=== PATIENT | female | born 1995 | race Caucasian/White ===

== ENCOUNTER 2017-03-11 01:34 | Emergency (ER) | payer OTHER ==
[~2017-03-11] VITALS: Ht 162.6 cm; Wt 71.5 kg
[2017-03-11 01:44] VITALS: TEMP 36.6; Ht 162.6 cm; Wt 71.5 kg
[2017-03-11] MEDS ORDERED: DOCUSATE SODIUM 100 MG/10 ML UDC PO STA (01:56)
[2017-03-11] MEDS ORDERED: AMOXICILLIN 250 MG CAP PO STA (02:28)
[2017-03-11] MEDS ORDERED: AMOX500C3 PO (02:41)
[2017-03-11] MEDS ORDERED: CARB1SOL8 OT (02:41)
--- NOTE | 2017-03-11 02:42 | EMERGENCY ROOM VISIT NOTE ---
History First contact with patient: 01:49 Chief Complaint: HEARING LOSS Stated Complaint: CAN'T HEAR OUT OF RT EAR,TINGLIY/DIZZY FEELING,SHA History of Present Illness The patient is a 22 year old female who presents to the Emergency Room with complaints of difficulty hearing out of her right ear for the past few days. The patient states that her symptoms have been constant over the past 2-3 days. She reports that she is concerned because she researched this online and feels she could have a brain hemorrhage because she has had a slight headache earlier tonight. The patient states that she has felt "tingly" all over her body. She denies recent head injury. She reports a mild discomfort in her right ear but denies any significant pain. She has a history of ear infections as a child but not as an adult. She denies any numbness or weakness, blurred vision, slurred speech, neck pain/stiffness or confusion. She denies fevers/ chills. Review of Systems A complete 10 point review of systems was reviewed with the patient with pertinent positives and negatives as per history of present illness. All else were negative. Social History Smoking Status: Never Smoker Alcohol Use: occasionally Drug Use: none Marital Status: single Housing Status: lives with roommate Occupation Status: [employer] student Current/Historical Medications Scheduled Amoxicillin (Amoxil), 500 MG PO TID Control Pills ( Control Pills), 1 TAB PO DAILY Carbamide Peroxide (Otic) (Debrox), 5 DROPS OT HS Physical Exam Vital Signs Date Time Temp Pulse Resp B/P (MAP) Pulse Ox O2 Delivery O2 Flow Rate FiO2 03/11/17 02:45 77 16 100/61 99 03/11/17 01:44 36.6 81 18 146/86 96 Room Air Physical Exam VITALS: Vitals are noted on the nurse's note and reviewed by myself. Vital signs stable. GENERAL: This is a 22-year-old female, in no acute distress, nondiaphoretic, well-developed well-nourished. SKIN: The skin was without rashes. EARS: The left tympanic membrane is partially obscured with cerumen but appears normal. The right tympanic membrane is completely obscured with cerumen. After the cerumen was removed, the tympanic membrane was found to be slightly bulging with an effusion. EYES: Pupils equal round and reactive to light and accommodation. Extraocular movements intact. MOUTH: Mucous membranes moist. Tonsils are not enlarged. Pharynx without erythema or exudate. NECK: Supple without nuchal rigidity. No lymphadenopathy. HEART: Regular rate and rhythm without murmurs gallops or rubs. LUNGS: Clear to auscultation bilaterally without wheezes, rales or rhonchi. MUSCULOSKELETAL: Strength 5/5 throughout. NEURO: Patient was alert and oriented to person place and time. Normal sensation to light and sharp touch. No focal neurological deficits. Medical Decision & Procedures Medications Administered Medications (Trade) Dose Ordered Sig/Rene Route Start Time Stop Time Status Last Admin Dose Admin Docusate Sodium (coLACE SYRUP) 100 mg NOW STAT PO 03/11/17 01:56 03/11/17 01:57 DC 03/11/17 01:56 100 MG Amoxicillin (Amoxil Cap) 500 mg NOW STAT PO 03/11/17 02:28 03/11/17 02:33 DC 03/11/17 02:28 500 MG Medical Decision The patient was evaluated as above. She has a cerumen impaction of the right ear which is likely causing her hearing loss. Colace was placed in the ear and the ear was irrigated with saline successfully. The patient was reevaluated and stated she felt much better. I feel that her symptoms were likely secondary to anxiety regarding her symptoms. She had only a mild headache and I am not suspicious of a subarachnoid hemorrhage. The eardrum did show some bulging and effusion and she will be placed on amoxicillin. She was given a prescription for Debrox drops and referred back to her PCP. She verbalized understanding of my assessment and treatment plan and was discharged home in good condition. Medication Reconcilliation Current Medication List: was personally reviewed by me Blood Pressure Screening Patient's blood pressure: Normal blood pressure Impression Primary Impression: Otitis media Additional Impression: Cerumen impaction Departure Information Dispostion Home / Self-Care Condition GOOD Prescriptions Carbamide Peroxide (Otic) (DEBROX) 6.5 % Jessica 5 DROPS OT HS, #15 ML Prov: Sandhya Dave PA-C 03/11/17 Amoxicillin (AMOXIL) 500 Mg Cap 500 MG PO TID for 7 Days, #21 CAP Prov: Sandhya Dave PA-C 03/11/17 Referrals [facility] (PCP) Patient Instructions My [facility] Additional Instructions You were prescribed amoxicillin to be taken as prescribed. This is an antibiotic. All antibiotics have the potential to cause diarrhea. Stop this medication and contact a medical provider if you were to develop any significant adverse side effects including: wheezing, shortness of breath, passing out, vomiting, or a diffuse rash. Always take antibiotics as directed and COMPLETE the ENTIRE course regardless of the improvement of your symptoms. For pain control, you can use the following [id number] medicines (if >12 yo): - Regular strength (325mg/tab) Tylenol (acetaminophen) 2 tabs every 4-6 hours as needed. Do not exceed 12 tablets in a 24 hour period. Avoid taking more than 4 grams (4000 mg) of Tylenol per day. This includes any other sources of acetaminophen you may take on a regular basis. - Regular strength (200 mg/tab) Advil (ibuprofen) 1-2 tabs every 4-6 hours as needed. Do not exceed a dose of 3200 mg per day. Use the Debrox drops in the ear as needed for wax buildup. Follow-up with [facility] for further evaluation. Return here for any worsening or new/concerning symptoms. Problem Qualifiers Primary Impression: Otitis media Additional Impression: Cerumen impaction Laterality: right Qualified Codes: H61.21 - Impacted cerumen, right ear
[2017-03-11 02:45] VITALS: BP 100/61; PULSE 77; O2SAT 99
[2017-04-24] MEDS ORDERED: BCPILLS PO (02:00)
== END 2017-03-11 02:46 | disposition home or self-care (01) ==
LOC: C.EDB 01:35
DX: H66.91 Otitis media, unspecified, right ear (principal); H61.21 Impacted cerumen, right ear; Z79.3 Long term (current) use of hormonal contraceptives

== ENCOUNTER 2017-03-11 21:56 | Emergency (ER) | payer OTHER ==
[~2017-03-11] VITALS: Ht 162.6 cm; Wt 71.1 kg
[~2017-03-11 21:56] MED LIST: AMOX500C3 PO; CARB1SOL8 OT
[2017-03-11 22:00] VITALS: TEMP 36.7; Ht 162.6 cm; Wt 71.1 kg
[2017-03-11 23:50] LABS: BASO % 0.3 %; BASO ABS # 0.02 K/uL (0-0.2); COMPLETE YES; EOS % 1.7 %; HEMATOCRIT 37.4 % (37-47); IG% 0.3 %; LYMPH % 22.9 %; LYMPH ABS # 1.44 K/uL (1.2-3.4); MEAN CELL VOLUME 90.6 fL (80-100); MEAN CORPUSCULAR HEMOGLOBIN 30.8 pg (25-34); MONO % 11.4 %; NEUT % 63.4 %; PLATELET COUNT 242 K/uL (130-400); RED BLOOD COUNT 4.13 M/uL (4.2-5.4)
[2017-03-12 00:15] LABS: BUN/CREATININE RATIO 16.4 (10-20); CALCIUM 8.6 mg/dl (8.5-10.1); CREATININE 0.63 mg/dl (0.60-1.20); MAGNESIUM 2.3 mg/dl (1.8-2.4)
[2017-03-12 00:26] LABS: THYROID STIMULATING HORMONE 1.01 uIu/ml (0.300-4.500)
[2017-03-12] MEDS ORDERED: LORAZEPAM 0.5 MG TAB SL STA (00:51)
--- NOTE | 2017-03-12 01:39 | EMERGENCY ROOM VISIT NOTE ---
History First contact with patient: 22:58 Chief Complaint: DIZZY Stated Complaint: TINGLING FEELING IN HEAD,EAR/SIGHT SENSITIVE, DIZZ Nursing Triage Summary: Patient states "I was here yesterday and they flushed my right ear. Today, my head feels tingly and I am dizzy. I have headache, side of the head and back of the head pain. I don't know if they are my sinuses hurting." History of Present Illness The patient is a 22 year old female who presents to the Emergency Room with complaints of a tingling feeling in her head. The patient states that she has had a tingling sensation in the front of her face. She was seen here yesterday by myself and had her right ear canal flushed. She states she has had intermittent pains in the side of her head. She does state that she was drinking over the weekend and is unsure if she hit her head. She denies any other numbness, weakness or tingling. She denies any confusion, blurred vision or slurred speech. She states that her ear is feeling better. She does admit to feeling very anxious. She denies chest pain or shortness of breath. Review of Systems A complete 10 point review of systems was reviewed with the patient with pertinent positives and negatives as per history of present illness. All else were negative. Social History Smoking Status: Never Smoker Alcohol Use: occasionally Drug Use: none Marital Status: single Housing Status: lives with roommate Occupation Status: [employer] student Current/Historical Medications Scheduled Amoxicillin (Amoxil), 500 MG PO TID Control Pills ( Control Pills), 1 TAB PO DAILY Carbamide Peroxide (Otic) (Debrox), 5 DROPS OT HS Allergies Coded Allergies: No Known Allergies (Unverified , 03/11/17) Physical Exam Vital Signs Date Time Temp Pulse Resp B/P (MAP) Pulse Ox O2 Delivery O2 Flow Rate FiO2 03/12/17 01:46 74 20 128/72 98 03/12/17 00:06 64 20 110/61 98 Room Air 03/11/17 22:00 36.7 97 18 119/79 96 Room Air Physical Exam VITALS: Vitals are noted on the nurse's note and reviewed by myself. Vital signs stable. GENERAL: This is a 22-year-old female, in no acute distress, nondiaphoretic, well-developed well-nourished. HEAD: Normocephalic atraumatic. EARS: External auditory canals clear, tympanic membranes pearly davis without erythema or effusion bilaterally. EYES: Pupils equal round and reactive to light and accommodation. Conjunctivae without injection, sclerae without icterus. Extraocular movements intact. MOUTH: Mucous membranes moist. Tonsils are not enlarged. Pharynx without erythema or exudate. NECK: Supple without nuchal rigidity. No lymphadenopathy. HEART: Regular rate and rhythm without murmurs gallops or rubs. LUNGS: Clear to auscultation bilaterally without wheezes, rales or rhonchi. MUSCULOSKELETAL: Full range of motion throughout. Strength 5/5 throughout. NEURO: Patient was alert and oriented to person place and time. Normal sensation to light and sharp touch. No focal neurological deficits. Medical Decision & Procedures ER Provider Diagnostic Interpretation: CT HEAD: No ICH, mass effect or edema. No evidence of acute cortical stroke. Visualized sinuses and mastoid air cells are clear. Radiologist: Evan Guevara MD Laboratory Results 03/11/17 23:34 Red Blood Count 4.13, Mean Corpuscular Volume 90.6, Mean Corpuscular Hemoglobin 30.8, Mean Corpuscular Hemoglobin Concent 34.0, Mean Platelet Volume 10.0, Neutrophils (%) (Auto) 63.4, Lymphocytes (%) (Auto) 22.9, Monocytes (%) (Auto) 11.4, Eosinophils (%) (Auto) 1.7, Basophils (%) (Auto) 0.3, Neutrophils # (Auto ) 3.99, Lymphocytes # (Auto) 1.44, Monocytes # (Auto) 0.72, Eosinophils # (Auto ) 0.11, Basophils # (Auto) 0.02 03/11/17 23:34 Test 03/11/17 23:30 03/11/17 23:34 Urine Test NEG (NEG) White Blood Count 6.30 K/uL (4.8-10.8) Red Blood Count 4.13 M/uL (4.2-5.4) Hemoglobin 12.7 g/dL (12.0-16.0) Hematocrit 37.4 % (37-47) Mean Corpuscular Volume 90.6 fL (80-100) Mean Corpuscular Hemoglobin 30.8 pg (25-34) Mean Corpuscular Hemoglobin Concent 34.0 g/dl (32-36) Platelet Count 242 K/uL (130-400) Mean Platelet Volume 10.0 fL (7.4-10.4) Neutrophils (%) (Auto) 63.4 % Lymphocytes (%) (Auto) 22.9 % Monocytes (%) (Auto) 11.4 % Eosinophils (%) (Auto) 1.7 % Basophils (%) (Auto) 0.3 % Neutrophils # (Auto) 3.99 K/uL (1.4-6.5) Lymphocytes # (Auto) 1.44 K/uL (1.2-3.4) Monocytes # (Auto) 0.72 K/uL (0.11-0.59) Eosinophils # (Auto) 0.11 K/uL (0-0.5) Basophils # (Auto) 0.02 K/uL (0-0.2) RDW Standard Deviation 46.3 fL (36.4-46.3) RDW Coefficient of Variation 13.9 % (11.5-14.5) Immature Granulocyte % (Auto) 0.3 % Immature Granulocyte # (Auto) 0.02 K/uL (0.00-0.02) Anion Gap 8.0 mmol/L (3-11) Est Creatinine Clear Calc Drug Dose 137.8 ml/min Estimated GFR () 149.7 Estimated GFR (Non- 129.1 BUN/Creatinine Ratio 16.4 (10-20) Calcium Level 8.6 mg/dl (8.5-10.1) Magnesium Level 2.3 mg/dl (1.8-2.4) Thyroid Stimulating Hormone (TSH) 1.010 uIu/ml (0.300-4.500) Medications Administered Medications (Trade) Dose Ordered Sig/Rene Route Start Time Stop Time Status Last Admin Dose Admin Lorazepam (Ativan Tab) 0.5 mg NOW STAT SL 03/12/17 00:51 03/12/17 00:52 DC 03/12/17 00:58 0.5 MG ECG Rate (beats per minute): 57 Rhythm: sinus bradycardia, other (short FL; no evidence of WPW) Findings: no acute ischemic change, no ectopy Comparison ECG Date: no prior available Medical Decision Differential diagnosis includes head injury, atypical migraine, anxiety, electrolyte abnormality, among others. The patient is a 22-year-old female who presents today complaining of a vague sensation of tingling in her face. Labs were unremarkable. A CT of the head was performed and was unremarkable. The patient was given 0.5 mg Ativan and reported relief of her symptoms. I feel that her symptoms are likely secondary to anxiety and she did admit to feeling very anxious. She has a normal neurologic exam. I recommended that she follow-up with [facility] this week and return here if she develops any worsening symptoms. Based on the patient's presentation and work up, I feel the patient is stable for outpatient treatment. The patient was educated to return to the emergency department for any worsening of their current condition or new/concerning symptoms. She will follow up with [facility] services. Medication reconciliation: I attest that I have personally reviewed the patient 's current medication list. Blood pressure screening: Patient was found to have normal blood pressure on screening and does not require follow-up. Impression Primary Impression: Tingling sensation Departure Information Dispostion Home / Self-Care Condition GOOD Referrals [facility] (PCP) Patient Instructions [facility] Additional Instructions Rest and stay well hydrated. For pain control, you can use the following [id number]-[id number] medicines (if >12 yo): - Regular strength (325mg/tab) Tylenol (acetaminophen) 2 tabs every 4-6 hours as needed. Do not exceed 12 tablets in a 24 hour period. Avoid taking more than 4 grams (4000 mg) of Tylenol per day. This includes any other sources of acetaminophen you may take on a regular basis. - Regular strength (200 mg/tab) Advil (ibuprofen) 1-2 tabs every 4-6 hours as needed. Do not exceed a dose of 3200 mg per day. Follow-up with [facility] this week for a recheck and any further testing that may be necessary.
[2017-03-12 01:46] VITALS: BP 128/72; PULSE 74; O2SAT 98
--- NOTE | 2017-03-12 06:33 | DIAGNOSTIC IMAGING REPORT ---
HEAD WITHOUT CONTRAST (CT) CLINICAL HISTORY: 22 years-old Female with numbness/tingling in face. TECHNIQUE: Multiple axial CT images of the head were obtained without contrast. A dose lowering technique was utilized adhering to the principles of ALARA. CT DOSE: 537.48 mGy.cm COMPARISON: None. FINDINGS: No acute intracranial hemorrhage, midline shift, mass, large territorial ischemia or abnormal extra-axial collection. The calvarium is intact. There is a trace right mastoid effusion. Middle ear cavities appear clear. Paranasal sinuses are also clear. Soft tissues of the scalp are unremarkable. Orbits are symmetric. IMPRESSION: 1. No acute intracranial abnormality. 2. Trace right mastoid effusion. The above report was generated using voice recognition software. It may contain grammatical, syntax or spelling errors. Electronically signed by: Jozef Chauhan M.D. 03/12/2017 6:32 AM Dictated Date/Time: 03/12/2017 6:30 AM
[2017-04-24] MEDS ORDERED: BCPILLS PO (02:00)
== END 2017-03-12 01:47 | disposition home or self-care (01) ==
LOC: C.EDB 21:57 → C.EDC 03-12 01:47
DX: R20.2 Paresthesia of skin (principal); R00.1 Bradycardia, unspecified

== ENCOUNTER 2017-04-24 17:17 | Emergency (ER) | payer OTHER ==
[~2017-04-24] VITALS: Ht 162.6 cm; Wt 68.0 kg
[~2017-04-24 17:17] MED LIST changes: -AMOX500C3 PO; +BCPILLS PO
[2017-04-24 17:19] VITALS: TEMP 36.4; Ht 162.6 cm; Wt 68.0 kg
[2017-04-24 17:54] LABS: BASO % 0.2 %; BASO ABS # 0.01 K/uL (0-0.2); COMPLETE YES; EOS % 0.9 %; HEMATOCRIT 43.8 % (37-47); IG% 0.3 %; LYMPH % 24.7 %; LYMPH ABS # 1.62 K/uL (1.2-3.4); MEAN CELL VOLUME 91.4 fL (80-100); MEAN CORPUSCULAR HEMOGLOBIN 28.8 pg (25-34); MEAN CORPUSCULAR HGB CONC 31.5 g/dl (32-36); MEAN PLATELET VOLUME 9.2 fL (7.4-10.4); MONO % 9.6 %; NEUT % 64.3 %; PLATELET COUNT 325 K/uL (130-400); RED BLOOD COUNT 4.79 M/uL (4.2-5.4); WHITE BLOOD COUNT 6.56 K/uL (4.8-10.8)
--- NOTE | 2017-04-24 18:14 | DIAGNOSTIC IMAGING REPORT ---
CHEST ONE VIEW PORTABLE CLINICAL HISTORY: Atypical chest pain. Shortness of breath. COMPARISON STUDY: No previous studies for comparison. FINDINGS: The cardiac and mediastinal contours are normal. There is no evidence of focal pulmonary consolidation. There is no evidence of failure. No pleural effusions are visualized.[ IMPRESSION: No active disease in the chest. Electronically signed by: Wero Koehler M.D. 04/24/2017 6:13 PM Dictated Date/Time: 04/24/2017 6:12 PM
[2017-04-24 18:22] LABS: ALT/SGPT 17 U/L (12-78); AST/SGOT 17 U/L (15-37); BLOOD UREA NITROGEN 12 mg/dl (7-18); BUN/CREATININE RATIO 13.5 (10-20); CALCIUM 9.3 mg/dl (8.5-10.1); CARBON DIOXIDE 27 mmol/L (21-32); CHLORIDE 104 mmol/L (98-107); CREATININE 0.89 mg/dl (0.60-1.20); GLUCOSE 72 mg/dl (70-99); SODIUM 138 mmol/L (136-145)
[2017-04-24 18:30] LABS: ALKALINE PHOSPHATASE 67 U/L (45-117)
[2017-04-24 18:32] LABS: PARTIAL THROMBOPLASTIN RATIO 1.1; PROTHROMBIN TIME (PATIENT) 10.4 SECONDS (9.0-12.0)
[2017-04-24 20:06] VITALS: BP 112/74; PULSE 65; O2SAT 99
--- NOTE | 2017-04-24 23:48 | EMERGENCY ROOM VISIT NOTE ---
History First contact with patient: 17:23 Chief Complaint: CARDIAC ASSESSMENT Stated Complaint: SEVERE CHEST PAIN, LEFT ARM/SHOULDER PAIN, SOB Nursing Triage Summary: Patient states "I had really bad chest pain last night. The pain has been lasting since today. I have really bad anxiety because of the pain. The pain radiates to my back and left shoulder. I also have shortness of breath." History of Present Illness The patient is a 22 year old female who presents to the Emergency Room with complaints of left sided chest pain, back and left shoulder pain. She also reports mild shortness of breath. The patient reports a history of "bad reflux ", but reports that this pain feels different. Her pain started around 5 AM this morning, and has been intermittent throughout the day. The patient denies any significant recent alcohol, caffeine or NSAIDs use. She denies tobacco use. She is currently on oral contraceptives. She denies any strong family history or personal history of heart disease. Her pain is not significant he worsened with activity or position. She rates her discomfort a 6 out of 10. Review of Systems HEENT: Denies dizziness, visual problems, hearing loss, tinnitus. Denies difficulty swallowing or oral lesions. PULMONARY: Denies cough, shortness of breath, sputum production or hemoptysis. CARDIOVASCULAR: Denies palpitations, dyspnea on exertion, orthopnea or peripheral edema. GASTROINTESTINAL: Denies diarrhea, constipation, nausea, vomiting, or abdominal pain. GENITOURINARY: Denies dysuria, frequency, urgency or nocturia. NEUROLOGIC: Denies history of epilepsy, CVA, TIA or chronic headaches. MUSCULOSKELETAL: Denies history of joint tenderness/swelling. SKIN: Denies rashes or lesions. PSYCHIATRIC: Denies history of depression or mental illness. ENDOCRINE: Denies history of diabetes or thyroid disorders. 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 Surgical Problems: (1) No history of previous surgery Family History Unremarkable Social History Smoking Status: Never Smoker Alcohol Use: occasionally Drug Use: none Marital Status: single Housing Status: lives with roommate Occupation Status: [employer] student Current/Historical Medications Scheduled Control Pills ( Control Pills), 1 TAB PO DAILY Physical Exam Vital Signs Date Time Temp Pulse Resp B/P (MAP) Pulse Ox O2 Delivery O2 Flow Rate FiO2 04/24/17 20:06 65 18 112/74 99 04/24/17 18:55 66 18 119/73 99 Room Air 04/24/17 17:53 Room Air 04/24/17 17:33 79 04/24/17 17:19 36.4 84 18 130/85 97 Room Air Physical Exam CONSTITUTIONAL: Healthy and well nourished. Alert and oriented X 3 with positive affect. She does not appear in any acute distress. HEENT: Normocephalic, atraumatic. Pupils equal, round and reactive. NECK: Full active range of motion without discomfort. RESPIRATORY: Clear to auscultation bilaterally with no wheezing, crackles, rhonchi or stridor. CARDIOVASCULAR: Regular rate and rhythm with no murmurs, rubs or gallops. GASTROINTESTINAL: Bowel sounds present in all quadrants. Soft and nontender to palpation. MUSCULOSKELETAL: Full range of motion of all joints without discomfort. No tenderness to palpation across the left anterior chest wall, shoulder or trapezius muscles. INTEGUMENTARY: No rash or other significant dermatologic conditions noted. HEMATOLOGIC: No ecchymosis or petechiae. NEUROLOGIC: No focal neurologic deficits noted. Medical Decision & Procedures ER Provider Diagnostic Interpretation: My interpretation of an ECG shows a normal sinus rhythm of [address] elevation or other conduction abnormalities. My interpretation of a portable chest x-ray does not show any consolidations, pneumothorax or cardiac prominence. Radiologist report is as follows: CHEST ONE VIEW PORTABLE CLINICAL HISTORY: Atypical chest pain. Shortness of breath. COMPARISON STUDY: No previous studies for comparison. FINDINGS: The cardiac and mediastinal contours are normal. There is no evidence of focal pulmonary consolidation. There is no evidence of failure. No pleural effusions are visualized.[ IMPRESSION: No active disease in the chest. Laboratory Results 04/24/17 17:43 Red Blood Count 4.79, Mean Corpuscular Volume 91.4, Mean Corpuscular Hemoglobin 28.8, Mean Corpuscular Hemoglobin Concent 31.5, Mean Platelet Volume 9.2, Neutrophils (%) (Auto) 64.3, Lymphocytes (%) (Auto) 24.7, Monocytes (%) (Auto) 9.6, Eosinophils (%) (Auto) 0.9, Basophils (%) (Auto) 0.2, Neutrophils # (Auto) 4.22, Lymphocytes # (Auto) 1.62, Monocytes # (Auto) 0.63, Eosinophils # (Auto) 0.06, Basophils # (Auto) 0.01 04/24/17 17:43 Test 04/24/17 17:43 White Blood Count 6.56 K/uL (4.8-10.8) Red Blood Count 4.79 M/uL (4.2-5.4) Hemoglobin 13.8 g/dL (12.0-16.0) Hematocrit 43.8 % (37-47) Mean Corpuscular Volume 91.4 fL (80-100) Mean Corpuscular Hemoglobin 28.8 pg (25-34) Mean Corpuscular Hemoglobin Concent 31.5 g/dl (32-36) Platelet Count 325 K/uL (130-400) Mean Platelet Volume 9.2 fL (7.4-10.4) Neutrophils (%) (Auto) 64.3 % Lymphocytes (%) (Auto) 24.7 % Monocytes (%) (Auto) 9.6 % Eosinophils (%) (Auto) 0.9 % Basophils (%) (Auto) 0.2 % Neutrophils # (Auto) 4.22 K/uL (1.4-6.5) Lymphocytes # (Auto) 1.62 K/uL (1.2-3.4) Monocytes # (Auto) 0.63 K/uL (0.11-0.59) Eosinophils # (Auto) 0.06 K/uL (0-0.5) Basophils # (Auto) 0.01 K/uL (0-0.2) RDW Standard Deviation 46.1 fL (36.4-46.3) RDW Coefficient of Variation 13.9 % (11.5-14.5) Immature Granulocyte % (Auto) 0.3 % Immature Granulocyte # (Auto) 0.02 K/uL (0.00-0.02) Prothrombin Time 10.4 SECONDS (9.0-12.0) Prothromb Time International Ratio 1.0 (0.9-1.1) Activated Partial Thromboplast Time 29.2 SECONDS (21.0-31.0) Partial Thromboplastin Ratio 1.1 D-Dimer 400 ug/L FEU (0-500) Anion Gap 7.0 mmol/L (3-11) Est Creatinine Clear Calc Drug Dose 95.6 ml/min Estimated GFR () 108.1 Estimated GFR (Non- 93.3 BUN/Creatinine Ratio 13.5 (10-20) Calcium Level 9.3 mg/dl (8.5-10.1) Total Bilirubin 0.3 mg/dl (0.2-1) Direct Bilirubin < 0.1 mg/dl (0-0.2) Aspartate Amino Transf (AST/SGOT) 17 U/L (15-37) Alanine Aminotransferase (ALT/SGPT) 17 U/L (12-78) Alkaline Phosphatase 67 U/L (45-117) Total Creatine Kinase 117 U/L (26-192) Creatine Kinase MB < 0.5 ng/ml (0.5-3.6) Creatine Kinase MB Ratio (0-3.0) Troponin I < 0.015 ng/ml (0-0.045) Total Protein 8.2 gm/dl (6.4-8.2) Albumin 3.9 gm/dl (3.4-5.0) Lipase 192 U/L (73-393) The above labs were reviewed and were normal, including troponin and d-dimer. CBC and partial renal profile are also normal. ED Course Patient history and physical exam were performed. Nurse's notes were reviewed. Vital signs were reviewed and were normal. IV access was established, and labs were drawn. ECG and portable chest x-ray were normal. Labs were also reviewed and normal, including troponin and d-dimer. The patient denied any significant discomfort on reassessment. The case was further discussed with Dr. Sommer, ED attending physician, who agrees with workup and outpatient plan of care. The patient was encouraged to follow-up with [facility] or [facility] as needed for any persistent symptoms. She was instructed to return for any worsening chest pain, shortness of breath, diaphoresis or fever. The patient was happy with plan of care, and voiced understanding of all discharge instructions. Medical Decision Patient presents to the emergency department approximately 12 hours after onset of left-sided chest pain, shortness of breath and shoulder pain. Her workup today is not suggestive of myocardial infarction, pneumothorax, pneumonia or other significant etiologies. Medication Reconcilliation Current Medication List: was personally reviewed by me Blood Pressure Screening Patient's blood pressure: Normal blood pressure Impression Primary Impression: Left-sided chest wall pain Departure Information Referrals [facility] (PCP) Patient Instructions [facility]
== END 2017-04-24 20:08 | disposition home or self-care (01) ==
LOC: C.EDB 17:18 → C.EDC 20:08
DX: R07.89 Other chest pain (principal); K21.9 Gastro-esophageal reflux disease without esophagitis; Z79.3 Long term (current) use of hormonal contraceptives